=== PATIENT | female | born 1960 | race African-American/Black ===

== ENCOUNTER → 2020-10-28 | Day surgery (SDC) | payer OTHER ==
[~2020-10-28] MED LIST: ACCUPRIL20 MG PO; ASPIRIN EC81 MG PO; DILTIAZEM 24HR240 M1 PO; MAXZIDE 37.5 M1 EACH PO; METFORMIN HCL500 MG PO; METOPROLOL SUC100 MG PO; OMEPRAZOLE20 M1 PO; PROZAC20 MG PO
[2020-10-28 07:49] LABS: HCT 36.4 % (37.0-47.0); HGB 11.5 g/dl (12.5-16.0); MCH 27.4 pg (25.0-31.0); MCHC 31.6 g/dL (32.0-36.0); MCV 86.7 fL (78.0-100.0); MPV 9.1 fL (6.0-9.5); RBC 4.2 M/uL (4.20-5.40); RDW 13.2 % (11.5-14.0); WBC 14.2 K/uL (4.0-10.5)
[2020-10-28 08:06] LABS: ALBUMIN 3.7 g/dL (3.4-5.0); BILIRUBIN - TOTAL 0.3 mg/dL (0.2-1.0); BUN/CREAT RATIO (CALC) 18.5 RATIO; CREATININE 0.81 mg/dL (0.51-0.95); GLOBULIN (CALCULATION) 3.7 g/dL; POTASSIUM 3.6 mmol/L (3.5-5.1); TOTAL PROTEIN 7.4 g/dL (6.4-8.2)
== END | disposition home or self-care (01) ==
LOC: FAS 07:05
PROVIDERS: Surgery
DX: Z12.11 Encounter for screening for malignant neoplasm of colon (principal); K63.5 Polyp of colon; K21.9 Gastro-esophageal reflux disease without esophagitis; E11.9 Type 2 diabetes mellitus without complications; I10 Essential (primary) hypertension; G47.30 Sleep apnea, unspecified; F17.210 Nicotine dependence, cigarettes, uncomplicated; Z98.890 Other specified postprocedural states; Z90.710 Acquired absence of both cervix and uterus; Z79.899 Other long term (current) drug therapy; Z90.49 Acquired absence of other specified parts of digestive tract; Z79.84 Long term (current) use of oral hypoglycemic drugs; Z98.51 Tubal ligation status; Z20.822 Contact with and (suspected) exposure to COVID-19
CPT/HCPCS: 36415; 80053; J2250; J2704; J7120

== ENCOUNTER 2021-06-25 21:02 | Emergency (ER) | payer OTHER ==
[2021-06-25 21:39] LABS: BASOPHIL 0.5 % (0-2); HCT 34.5 % (37.0-47.0); LYMPHOCYTE 30.8 % (15-48); MCHC 31.9 g/dL (32.0-36.0); MCV 84.8 fL (78.0-100.0); NEUTROPHIL 60.3 % (41-80); NRBC 0; PLT 344 K/uL (150-400); RBC 4.07 M/uL (4.20-5.40); RDW 13.9 % (11.5-14.0); WBC 12.9 K/uL (4.0-10.5)
[2021-06-25 22:21] LABS: ALBUMIN 3.8 g/dL (3.4-5.0); BILIRUBIN - TOTAL 0.3 mg/dL (0.2-1.0); BUN/CREAT RATIO (CALC) 16.2 RATIO; CREATININE 0.74 mg/dL (0.51-0.95); GLOBULIN (CALCULATION) 3.5 g/dL; POTASSIUM 4.1 mmol/L (3.5-5.1); TOTAL PROTEIN 7.3 g/dL (6.4-8.2)
[2021-06-26] MEDS ORDERED: IBUPROFEN800 MG PO (01:05)
[2021-06-26] MEDS ORDERED: ACETAMINOPHEN-1 EAC1 PO (01:05)
[2021-06-26] MEDS ORDERED: CYCLOBENZAPRINE10 MG PO (01:05)
== END 2021-06-26 01:15 | disposition home or self-care (01) ==
LOC: FER 21:02
PROVIDERS: Emergency Medicine Emergency Medical Services
DX: S20.211A Contusion of right front wall of thorax, initial encounter (principal); I10 Essential (primary) hypertension; F17.200 Nicotine dependence, unspecified, uncomplicated; Z79.899 Other long term (current) drug therapy; Z79.82 Long term (current) use of aspirin; V43.52XA Car driver injured in collision with other type car in traffic accident, initial encounter; Y92.410 Unspecified street and highway as the place of occurrence of the external cause
CPT/HCPCS: 36415; 70450; 71260; 72125; 72128; 80053; 82550; 83605; 83690; 84484; 85025; 93005; Q9967